=== PATIENT | female | born 1965 | race Caucasian/White ===

== ENCOUNTER 2018-06-01 08:43 | Inpatient (IN) | payer BC ==
[2018-06-01] VITALS (9 sets, daily range): BP systolic 106–120; BP diastolic 44–81
[~2018-06-01] VITALS: Ht 160 cm; Wt 99.0 kg
[2018-06-01 09:45] LABS: HEMATOCRIT 43.1 % (37.0-47.0); HEMOGLOBIN 14.4 g/dl (12.0-16.0); IMMATURE GRANULOCYTES 0.5 % (0.0-5.0); MEAN CELL VOLUME 90.2 fL CALC (80.0-100.0); MEAN CORPUSCULAR HGB 30.1 pG CALC (26.0-32.0); MEAN CORPUSCULAR HGB CONC 33.4 g/L CALC (32.0-36.0); RED BLOOD COUNT 4.78 mill/uL (4.20-5.60); RED CELL DISTRI WIDTH 13.3 % (11.5-15.5)
[2018-06-01 10:06] LABS: ALKALINE PHOSPHATASE 118 u/l (38-126); BILIRUBIN, TOTAL 0.2 mg/dL (0.0-1.4); BUN 15 mg/dL (7-17); BUN/CREATININE RATIO 23 (12-20 (CALC)); CARBON DIOXIDE 20 mmol/l (22-30); CHLORIDE 110 mmol/l (95-108); CREATININE 0.6 mg/dL (0.5-1.0); GFR > 60 ML/MIN (>=60 (CALC)); GFR FOR AFR.AMER. > 60 ML/MIN (>=60 (CALC)); LIPASE 30 u/l (23-300); SGOT/AST 21 u/l (14-36); SGPT/ALT 29 u/l (9-52); SODIUM 142 mmol/l (137-146); TOTAL PROTEIN 7.5 g/dL (6.3-8.2)
[2018-06-01 10:07] LABS: ANION GAP 16 (6-22 (CALC)); POTASSIUM 4.4 mmol/l (3.5-5.1)
--- NOTE | 2018-06-01 10:19 | NUR ---
PT RESTING COMFORTABLY RT SIDE LYING TALKING APPROPRIATELY WITH AT BEDSIDE. VSS. RATES PAIN 3/10. STATES SHE FEELS THE PRESSURE AT SUPRAPUBIC AREA AND RT FLANK. DENIES N/V SINCE ADMIT TO ER
--- NOTE | 2018-06-01 10:57 | NUR ---
LEFT WITH [facility] ATTENDANT REPORT TO RYAN. SMITH
[2018-06-01 11:41] LABS: URINE BILIRUBIN - DIPSTICK NEGATIVE (NEGATIVE); URINE BLOOD DIPSTICK NEGATIVE (NEGATIVE); URINE COLOR YELLOW; URINE GLUCOSE - DIPSTICK NEGATIVE (NEGATIVE); URINE KETONE NEGATIVE (NEGATIVE); URINE LEUK ESTERASE NEGATIVE (NEGATIVE); URINE NITRITE - DIPSTICK NEGATIVE (Negative); URINE PH 5.5 (4.5-8.0); URINE PROTEIN - DIPSTICK NEGATIVE (NEG-TRACE); URINE SPECIFIC GRAVITY >=1.030; URINE UROBILINOGEN - DIPSTICK 0.2 E.U./dL (0.2)
[2018-06-01 11:44] LABS: URINE CLARITY CLEAR
--- NOTE | 2018-06-01 13:40 | NUR ---
RETURNED IN STABLE CONDITION, PAIN RLQ 10. AWARE
--- NOTE | 2018-06-01 14:03 | NUR ---
medicated for nausea and pain. nausea has subsided. yfn from anesthesia in, at bedsied
--- NOTE | 2018-06-01 14:20 | NUR ---
unable to obtain bc-to surgery
--- NOTE | 2018-06-01 14:21 | NUR ---
pt transported to OR via stretcher with juanpablo coates in stable condition . to surgical waiting area
--- NOTE | 2018-06-01 16:22 | NUR ---
REPORT GIVEN BY NIKKIE FITZGERALD. IV SITE IS FREE FROM REDNESS OR EDEMA. DRESSING INTACT ON ABD AND [place] IN PLACE. DRAINING SERO DRAINAGE.
--- NOTE | 2018-06-01 16:35 | NUR ---
PT ASSESSMENT COMPLETED: IV SITE IS FREE FROM REDNESS OR EDEMA. HR IS REG, PULSES ARE STRONG , ABD IS SOFT WITH TENDERNESS ON LOWER QUADS. DRESSING INTACT 3 WITH ENEDELIA UNDERNEATH COVERED WITH 4X4 AND TEGEDERM, FRANCE DRAIN IN PLACE DRAINING SERO BLOODY DRAINAGE. DRESSING IS CDI. BREATH SOUNDS ARE CLEAR, CONTINUE TOOSBERVE AND MONITOR
--- NOTE | 2018-06-01 16:55 | NUR ---
PT DID USE THE INCENTIVE SPIROMETER UP TO 1500 X 10 ENCOURAGING PT TO CONTINUE EVERY HOUR FAMILY IN THE ROOM,
--- NOTE | 2018-06-01 19:20 | NUR ---
PT IS IN BED W/FAMILY AT BEDSIDE. MEDICATIONS AND POC DISCUSSED. FRANCE DRAIN EMPTIED OF 100CC BLOODY SEROUS DRAINAGE. SURGICAL DRESSINGS X3 APPEAR CDI. PT PROVIDED BLANKET AND EXTRA PILLOWS AT THIS TIME. WILL CONTINUE TO MONITOR.
[2018-06-01 21:03] LABS: BARBITURATES NEGATIVE (NEGATIVE); COCAINE NEGATIVE (NEGATIVE); METHADONE NEGATIVE (NEGATIVE); OXCYCODONE NEGATIVE (NEGATIVE); TETRAHYDROCANNABIONOL POSITIVE (NEGATIVE); TRICYLIC ANTIDEPRESSANTS NEGATIVE (NEGATIVE)
[2018-06-02 00:50] VITALS: BP 116/69
[2018-06-02 01:00] VITALS: BP 140/84
--- NOTE | 2018-06-02 01:00 | NUR ---
FRANCE DRAIN EMPTIED OF 30CC OF BLOODY SEROUS FLUID. PT ASSISTED UP TO RESTROOM AND C/O PAIN UPON MOVING. POC DISCUSSED WITH PT AND SHE WAS REMINDED THAT THE MORE SHE MOVES THE QUICKER THE PAIN WILL BE RELEIVED. PT HAS BEEN LAYING ON LEFT SIDE ALL EVENING SO FAR WITH A PILLOW UNDER RIGHT SIDE ELEVATING IT.
--- NOTE | 2018-06-02 04:10 | NUR ---
PT ASSISTED TO BEDSIDE COMMODE AND BACK TO BED, FRANCE DRAIN APPEARS TO BE DRAINING BLOODY/SEROUS FLUID, DRESSINGS ARE CDIX2/THIRD LOWER DRESSING SITE HAS SOME BLOODY DRAINAGE BUT IS NOT SATURATED. WILL CONTINUE TO MONITOR.
[2018-06-02 04:34] VITALS: BP 140/76
[2018-06-02 08:51] VITALS: BP 123/62
--- NOTE | 2018-06-02 08:51 | NUR ---
PT RESTING IN BED, NO SIGNS OF DISTRESS NOTED, RESP EVEN AND UNLABORED. AT BEDSIDE. PT ALERT AND ORIENTED X3, NO EDEMA. X3 INC TO ABD FROM LAP APPY, X1 FRANCE DRAIN BELOW UMBILICUS, DRAINING SS DRAINAGE TO GRAVITY. DISCUSSED POC, EDUCATED AND ENCOURAGED USE OF IS. PT REFUSED SCD ENCOURAGED TO PADDLE FEET WHILE IN BED AND AMBULATE IN ROOM WHEN ABLE, PT IN AGREEMENT. ASSESSMENT COMPLETED AT THIS TIME. CALL LIGHT IN REACH,CONTINUE TO MONITOR.
--- NOTE | 2018-06-02 13:20 | NUR ---
AT BEDSIDE, DISCUSSING POC AND HOSPITAL STAY UNTIL AT LEAST SUNDAY DUE TO THE APPENDIX BURSTING. PT AND IN AGREEMENT. QUESTIONS ANSWERED BY SURGEON. PT MEDICATED FOR PAIN CALL LIGHT IN REACH,CONTINUE TO MONITOR.
[2018-06-02 16:00] VITALS: BP 146/79
--- NOTE | 2018-06-02 16:11 | NUR ---
PT MEDICATED FOR PAIN. NO SIGNS OF DISTRESS NOTED, RESP EVEN AND UNLABORED. CALL LIGHT IN REACH,CONTINUE TO MONITOR.
--- NOTE | 2018-06-02 19:15 | NUR ---
PT IS IN BED W/ AT BEDSIDE. REPORTS FEELING MUCH BETTER AND PASSING LOTS OF GAS. DENIES ANY NEEDS AT THIS TIME. CALL LIGHT W/IN REACH AND TV ON LIGHTS LOW.
[2018-06-02 19:49] VITALS: BP 126/82
--- NOTE | 2018-06-02 22:17 | NUR ---
PT MEDICATED FOR PAIN / AND IV FLUIDS REPLENISHED. PT ALSO MEDICATED W/SLEEP AIDE ORDERS PROVIDE AND REQUESTED. [place] DRAIN IS DRAINING AND DRESSINGS X3 TO ABD ARE CDI, SMALL AMOUNT OF BLOODY DRAINAGE TO LEFT LOWER INCISIONAL DRESSING. NO NOTED EDEMA. LUNG SOUNDS ARE MILD WHEEZE THROUGHOUT. PT DENIES ANY OTHER NEEDS AT THIS TIME. CALL LIGHT IS W/IN REACH AND FAMILY MEMBER IS AT BEDSIDE.
[2018-06-03 00:26] VITALS: BP 131/76
--- NOTE | 2018-06-03 00:50 | NUR ---
PT MEDICATED FOR PAIN AT THIS TIME. AND ANTIBIOTIC THERAPY. PT DENIES ANY OTHER NEEDS. FR[place] DRAIN IS DRAINING AND HAS PROPER SUCTION AT THIS TIME. NO S/S OF DISTRESS.
--- NOTE | 2018-06-03 02:50 | NUR ---
PT IS SLEEPING/ ASLEEP ON ROLL-AWAY AT BEDSIDE. NO S/S OF DISTRESS NOTED.
[2018-06-03 05:14] VITALS: BP 13/79; BP 132/79
[2018-06-03 05:58] LABS: ANION GAP 14 (6-22 (CALC)); BUN 11 mg/dL (7-17); BUN/CREATININE RATIO 15 (12-20 (CALC)); CARBON DIOXIDE 26 mmol/l (22-30); CHLORIDE 106 mmol/l (95-108); CREATININE 0.7 mg/dL (0.5-1.0); GFR > 60 ML/MIN (>=60 (CALC)); GFR FOR AFR.AMER. > 60 ML/MIN (>=60 (CALC)); IMMATURE GRANULOCYTES 0.7 % (0.0-5.0); MEAN CELL VOLUME 89.8 fL CALC (80.0-100.0); MEAN CORPUSCULAR HGB 30.1 pG CALC (26.0-32.0); MEAN CORPUSCULAR HGB CONC 33.5 g/L CALC (32.0-36.0); NEUT# 11.56 thou/uL (2.00-7.15); POTASSIUM 3.8 mmol/l (3.5-5.1); RED BLOOD COUNT 4.02 mill/uL (4.20-5.60); RED CELL DISTRI WIDTH 13.9 % (11.5-15.5); SODIUM 142 mmol/l (137-146)
[2018-06-03 06:01] LABS: HEMATOCRIT 36.1 % (37.0-47.0); HEMOGLOBIN 12.1 g/dl (12.0-16.0)
[2018-06-03 08:45] VITALS: BP 101/61
--- NOTE | 2018-06-03 08:45 | NUR ---
RECEIVED PT IN SEMI FOWLERS POSITION, ALERT BREATH SOUNDS ARE CLEAR, BILATERALLY, CONTINUES TO USE ISP, HR IS REG,PULSES ARE STRONG X4, ABD IS SOFT WITH ACTIVE BS. IV SITE IS FREE FROM REDNESS OR EDEMA. CONTINUE TO OSBERVE AND MONITOR.
--- NOTE | 2018-06-03 12:15 | NUR ---
PT IS RELAXING IN BED WITH NO DISTRESS NOTED. IV SITE IS FREE FROM REDNESS OR EDEMA. PT HAS BEEN AMBULATING IN THE ROOM.
[2018-06-03] MEDS ORDERED: LOVASTATIN20 M1 PO (14:53)
--- NOTE | 2018-06-03 15:09 | NUR ---
SPOKE WITH RE: FR[place] DRAIN REMOVAL. GAVE A VERBAL ORDER. EXPLAINED THERE WAS NOTHING WRITTEN IN THE NOTES. STATED" I KNOW". CONTINUE TO OBSERVE AND MONITOR.
[2018-06-03 15:36] VITALS: BP 116/56
--- NOTE | 2018-06-03 15:53 | NUR ---
PULLED FRANCE DRAIN, HAD 1 STITCH EMPTIED 35CC OF SERO DRAINAGE. PT TOLERATED WELL. TUBING INTACT.
--- NOTE | 2018-06-03 16:15 | NUR ---
PT IS RELAXING IN BED WITH NO DISTRESS NOTED. IV SITE IS FREE FROM REDNESS OR EDEMA.
--- NOTE | 2018-06-03 19:27 | NUR ---
BEDSIDE REPORT RECEIVED FROM CARY CERVANTES. PT RESTING IN BED SEMI FOWLERS; ALERT AND ORIENTED. C/O MILD ABDOMINAL PAIN; 3 LAP SITES WITH BESS DRESSINGS CDI. RESPIRATIONS EVEN AND UNLABORED ON ROOM AIR; IS AT BEDSIDE. PLAN OF CARE REVIEWED. PT ENCOURAGED TO VERBALIZE CONCERNS. STATES UNDERSTANDING. SAFETY MEASURES IN PLACE. CALL LIGHT WITHIN REACH.
[2018-06-03 19:37] VITALS: BP 114/68
[2018-06-04 00:30] VITALS: BP 132/69
--- NOTE | 2018-06-04 00:32 | NUR ---
PT UP TO BATHROOM WITH STAND BY ASSIST; LORTAB GIVEN AT HS WITH MINIMAL EFFECT FOR RLQ ABDOMINAL PAIN; DILAUDID GIVEN LATER WITH GOOD EFFECT. NOW AT BEDSIDE. IV FLUIDS INFUSING WITHOUT DIFFICULTY; IV SITE APPEARS HEALTHY. 2/3 ABDOMINAL DRESSINGS HAVE 25% SEROUS DRAINAGE AND THEY ARE INTACT. PT HAS NO REQUESTS OR CONCERNS AT THIS TIME. SAFETY MEASURES IN PLACE. CALL LIGHT WITHIN REACH.
--- NOTE | 2018-06-04 04:00 | NUR ---
PT AWAKENS SPONTANEOUSLY FOR VS AND LABS. NO ACUTE CHANGES IN CONDITION THROUGHOUT THE NIGHT. SAFETY MEASURES IN PLACE. CALL LIGHT WITHIN REACH.
[2018-06-04 04:10] VITALS: BP 140/89
[2018-06-04 05:09] LABS: HEMATOCRIT 34.6 % (37.0-47.0); HEMOGLOBIN 11.6 g/dl (12.0-16.0); MEAN CELL VOLUME 89.9 fL CALC (80.0-100.0); MEAN CORPUSCULAR HGB 30.1 pG CALC (26.0-32.0); MEAN CORPUSCULAR HGB CONC 33.5 g/L CALC (32.0-36.0); RED BLOOD COUNT 3.85 mill/uL (4.20-5.60); RED CELL DISTRI WIDTH 13.8 % (11.5-15.5)
[2018-06-04 05:46] LABS: ALKALINE PHOSPHATASE 105 u/l (38-126); ANION GAP 14 (6-22 (CALC)); BILIRUBIN, TOTAL 0.5 mg/dL (0.0-1.4); BUN 9 mg/dL (7-17); BUN/CREATININE RATIO 13 (12-20 (CALC)); CARBON DIOXIDE 24 mmol/l (22-30); CHLORIDE 107 mmol/l (95-108); CREATININE 0.7 mg/dL (0.5-1.0); GFR > 60 ML/MIN (>=60 (CALC)); GFR FOR AFR.AMER. > 60 ML/MIN (>=60 (CALC)); SGOT/AST 15 u/l (14-36); SGPT/ALT 25 u/l (9-52); SODIUM 140 mmol/l (137-146); TOTAL PROTEIN 5.8 g/dL (6.3-8.2)
--- NOTE | 2018-06-04 07:01 | NUR ---
BEDSIDE REPORT RECEIVED BY GLEN. PT IS RESTING IN BED AND IN ROOM. CALL LIGHT IN REACH.
--- NOTE | 2018-06-04 07:26 | NUR ---
MEDICATED PT WITH LORTAB FOR PAIN SEE EMAR. ASSESSMENT DONE . RESPS EVEN AND UNLABORED. 1/2NS 100ML/HR INFUSING WELL. DRESSING IN ABD ARE CDI BUT 2/3 DRESSING HAVE OLD SEROUS DRAINAGE. SAFETY PRECAUTIONS REINFORCED AND CALL LIGHT IN REACH.
[2018-06-04 07:30] VITALS: BP 121/62
[2018-06-04] MEDS ORDERED: LORTAB 5/3255 MG PO (09:52)
[2018-06-04] MEDS ORDERED: AUGMENTIN875TAB PO (09:52)
--- NOTE | 2018-06-04 12:13 | NUR ---
Discharge instructions given. Patient verbalizes understanding of same. Discharged in stable condition via Wheelchair to Home with spouse. All belongings sent with pt.
== END 2018-06-04 12:13 | disposition home or self-care (01) | DRG 340 ==
LOC: ED 08:43 → ED-I 12:25 → ED 13:41 → MS2 13:42
PROVIDERS: Family Medicine; Internal Medicine; ADMIT General Practice; ATTEND General Practice
PROC: 0DTJ4ZZ Resection of Appendix, Percutaneous Endoscopic Approach (ICD-10-PCS; principal; 2018-06-01)
DX: K35.3 Acute appendicitis with localized peritonitis (principal); F17.210 Nicotine dependence, cigarettes, uncomplicated; E78.00 Pure hypercholesterolemia, unspecified; E86.0 Dehydration